=== PATIENT | female | born 1950 | race Caucasian/White ===

== ENCOUNTER 2018-12-20 14:28 | Observation (INO) | payer MEDICARE ==
[~2018-12-20] VITALS: Ht 167.6 cm; Wt 104.3 kg
--- NOTE | ~2018-12-20 | H ---
[address] [address] HISTORY AND PHYSICAL Name: ANKIT SOMERS Juanis Room: [address] Carmen#: [id number] Admission: 12/20/18 Attend Phys: Grzegorz Jimenez MD Discharge: Date of : 52 Report #: [id number] THIS REPORT FOR: //name// CC: [facility] physician/PCP Grzegorz Jimenez INTRODUCTION: This is a 67-year-old white female, who was seen in the ER for a right fifth digit necrotic toe with some progressing erythema to the fifth ray and possibly along to the fourth digit. HISTORY OF PRESENT ILLNESS: This is a 67-year-old healthy female, not diabetic, with a wound that started approximately 4 weeks ago on her fifth digit. Since then, it has become progressively darker, necrotic, and painful with erythema surrounding the fifth digit and more proximal. The patient decided to come to the ER, was admitted here on 12/20 at [place]. PAST MEDICAL HISTORY: Significant for hypertension, previous left ankle fracture noted as well. MEDICATIONS: Include lisinopril and Bystolic. ALLERGIES: TO MORPHINE. SOCIAL HISTORY: No history of tobacco use, recreational drugs but occasional alcohol use. Very pleasant, very bright woman. PAST SURGICAL HISTORY: Ankle fracture. FAMILY HISTORY: Noncontributory. REVIEW OF SYSTEMS: In the chart, noncontributory. PHYSICAL EXAMINATION: GENERAL: The patient is well-developed, well-nourished white female in no acute distress, morbidly obese. HEENT: PERRLA. NECK: Supple. HEART: Regular rhythm. No murmurs, rubs, or gallops. LUNGS: Clear to auscultation. No rales, rhonchi, or wheezing. EXTREMITIES: Lower extremity exam shows she has a fifth digit with the very distal aspect necrotic, well demarcated at this time with the more proximal aspect of the digit, kind of a purplish resolving hue color. There is no erythema when I see it around the fifth digit or fourth digit. LABORATORY DATA: Her white blood cell is 9.2 and [place] [address] HISTORY AND PHYSICAL Name: ANKIT SOMERS Room: [address] M.R.#: [id number] Admission: 12/20/18 Attend Phys: Grzegorz Jimenez MD Discharge: Date of : 52 Report #: [id number] any bony involvement. IMPRESSION: The patient appears to have an embolic shower according to the history and the presentation today to that right fifth digit. PLAN: To watch it and let it demarcate out. The patient and I had a long conversation about the potential process or progress that will occur. It could take at least 3-4 weeks for this to demarcate out completely, maybe even longer but it will take some time. I have discussed the wound care shoe to walk and I will see her in my office in the next week or so. The patient knows she can call me anytime with any concerns. By: [id number] [id number] Joseph DPM /titus
[2018-12-20 14:55] VITALS: BP 157/99
[2018-12-20] MEDS ORDERED: LISINOPRIL10 MG PO (14:59)
[2018-12-20] MEDS ORDERED: BYSTOLIC 5 MG5 MG PO (15:00)
[2018-12-20 17:38] LABS: ABSOLUTE EOSINOPHILS 0.1 thou/uL (0.0-0.7); ABSOLUTE LYMPHOCYTES 2.5 thou/uL (0.8-5.3); ABSOLUTE MONOCYTES 0.6 thou/uL (0.0-1.2); BASOPHILS 0.3 %; EOSINOPHILS 1.1 %; HEMATOCRIT 47.5 % (37.0-47.0); HEMOGLOBIN 16.3 gm/dL (12.0-15.0); LYMPHOCYTES 26.8 %; MCH 31.5 pg (26.0-34.0); MCHC 34.4 g/dL (28.0-37.0); MCV 91.4 fL (80.0-100.0); MONOCYTES 6.6 %; NUCLEATED RBCS 0 /100WBC; PLATELET COUNT* 196 thou/uL (150-400); POLYS 65.2 %; RBC 5.19 mil/uL (4.20-5.00); RDW-CV 14.2 % (10.5-14.5); WBC 9.2 thou/uL (4.0-11.0)
[2018-12-20 17:46] LABS: CALCIUM 11.9 mg/dL (8.5-10.1); POTASSIUM 3.3 mmol/L (3.5-5.1)
[2018-12-20 17:47] LABS: APTT 28.8 Seconds (25.0-31.3); PROTIME 10.7 Seconds (9.20-11.50)
[2018-12-20 17:51] LABS: ALBUMIN 4.2 g/dL (3.4-5.0); TOTAL BILIRUBIN 0.9 mg/dL (<0.1-1.0); TOTAL PROTEIN 7.4 g/dL (6.4-8.2)
--- NOTE | 2018-12-20 19:29 | NUR ---
BACK FROM MRI
[2018-12-20 20:01] VITALS: BP 110/74
[2018-12-20 20:36] VITALS: BP 149/72
[2018-12-21 01:50] VITALS: BP 97/41
[2018-12-21 02:10] LABS: GLYCOHEMOGLOBIN (HGB A1C) 5.4 % (4.8-5.6)
[2018-12-21 04:26] LABS: HEMATOCRIT 43.1 % (37.0-47.0); HEMOGLOBIN 14.5 gm/dL (12.0-15.0); MCHC 33.5 g/dL (28.0-37.0); MCV 92.4 fL (80.0-100.0); MPV 8.5 fl. (7.2-11.1); RBC 4.67 mil/uL (4.20-5.00); RDW-CV 14.5 % (10.5-14.5); WBC 7.6 thou/uL (4.0-11.0)
[2018-12-21 04:36] LABS: ANION GAP 10 mmol/L (7-16); BUN 20 mg/dL (7-18); CALCIUM 10.2 mg/dL (8.5-10.1); CHLORIDE 102 mmol/L (98-107); CO2 27 mmol/L (21-32); CREATININE 1.1 mg/dL (0.6-1.3); GLUCOSE 93 mg/dL (70-99); POTASSIUM 3.2 mmol/L (3.5-5.1); SODIUM 139 mmol/L (136-145)
[2018-12-21 04:40] LABS: CHOLESTEROL 197 mg/dL (<200); HDL CHOLESTEROL 48 mg/dL (>40); LDL CHOLESTEROL 85 mg/dL (<100); MAGNESIUM 1.6 mg/dL (1.8-2.4); TC:HDL 4.1 Ratio (Not establshd); TRIGLYCERIDE 322 mg/dL (<150); VLDL 64 mg/dL (<40)
[2018-12-21 04:56] LABS: SERUM ASSESSMENT CLEAR
--- NOTE | 2018-12-21 05:02 | NUR ---
PATIENT SLEPT WELL AFTER ADMISSION COMPLETED. PT WITH NECROTIC RT 5TH TOE; NO DRAINAGE NOTED. PT WRAPPED IN GAUZE 4X4 FOLDED WITH TAPE TO KEEP TOES . PT REQUESTED TYLENOL ONE TIME AT HS FOR PAIN/SLEEP. PT DENIES NEEDS THIS AM. PT WITH FLUIDS/ANTIBIOTICS INFUSING PER DR ORDER. PT UP AD CORTEZ WITH STEADY GAIT TO BATHROOM. FREQUENTLY USED ITEMS AND CALL LIGHT WITHIN REACH. SIDERAILS UPX2. WILL CONTINUE TO MONITOR.
[2018-12-21 07:35] VITALS: BP 135/54
[2018-12-21] MEDS ORDERED: ASA5UEC PO (08:01)
[2018-12-21] MEDS ORDERED: NORCO 5-325 TA1 EAC1 PO (08:01)
[2018-12-21] MEDS ORDERED: LIPITOR 20 MG T20 M1 PO (08:02)
[2018-12-21] MEDS ORDERED: KEFLEX250 MG PO (08:04)
[2018-12-21 09:40] VITALS: BP 135/54
--- NOTE | 2018-12-21 11:47 | NUR ---
PT.IN BED. VISITED WITH HER. SHE SAID SHE LIVES WITH A ROOMATE-A GOOD FRIEND FROM HIGH SCHOOL. SHE CAN HELP HER IF NEEDED. PT.DOES NOT FEEL SHE WILL NEED ASSIST EXCEPT FOR MAYBE GROCERY SHOPPING. SHE SAID HER ROOMATE CAN DO THAT,THOUGH. PT.STILL WORKS SENIOR SOFTWARE DEVELOPMENT MANAGER. NO DME OR HX OF OR SNF. PT.DID NOT FEEL SHE HAD INSURANCE BUT ADMITTING RAN HER SS# AND SHE HAS MEDICARE. PT.SAID SHE NEVER GO A CARD. GAVE HER PHONE NUMBER TO CALL TO REQUEST A CARD.
[2018-12-21 14:28] LABS: CALCIUM 10.5 mg/dL (8.5-10.1); CREATININE 0.9 mg/dL (0.6-1.3); PHOSPHORUS* 2.1 mg/dL (2.5-4.9)
[2018-12-21 15:29] VITALS: BP 135/54
--- NOTE | 2018-12-21 15:45 | NUR ---
WOUND NURSE: PATIENT SEEN BY SHIRIN OLIVER FROM [facility] AND SHE PROVIDED WOUND POT. PATIENT NOT SEEN BY ME A RESULT.
[2018-12-21 15:59] VITALS: BP 135/54
--- NOTE | 2018-12-21 16:11 | NUR ---
PT GIVEN DISCHARGE INFORMATION, CARE NOTES, AND PRESCRIPTIONS. IV REMOVED. PT DENIED ANY FURTHER QUESTIONS OR CONCERNS. PT LEFT AMBULATORY WITH NURSING STAFF TO HOME. FALL RISK PRECAUTIONS IN PLACE. HOURLY ROUNDING COMPLETED.
[2018-12-21 16:12] VITALS: BP 135/54
== END 2018-12-21 16:13 | disposition home or self-care (01) ==
LOC: M.ERS 14:28 → M.ORTHSURG 18:07 → M.TBA-ER 18:07 → M.ORTHSURG 18:07
PROVIDERS: Nurse Practitioner Family; ADMIT Internal Medicine
DX: I70.261 Atherosclerosis of native arteries of extremities with gangrene, right leg (principal); I73.9 Peripheral vascular disease, unspecified; I10 Essential (primary) hypertension; E87.6 Hypokalemia; E83.52 Hypercalcemia; E66.9 Obesity, unspecified; Z79.82 Long term (current) use of aspirin; Z79.899 Other long term (current) drug therapy

== ENCOUNTER 2018-12-31 15:56 | Inpatient (IN) | payer MEDICARE ==
[~2018-12-31] VITALS: Ht 167.6 cm; Wt 108.4 kg
--- NOTE | ~2018-12-31 | CON ---
[address] [address] CONSULTATION Name: ANKIT SOMERS Room: [address] ADM IN M.R.#: [id number] Admission: 12/31/18 Attend Phys: Cesilia Gonzalez MD Discharge: Date of : 52 Report #: [id number] THIS REPORT FOR: //name// CC: [facility] physician/PCP Cesilia Gonzalez HISTORY OF PRESENT ILLNESS: The patient is a 68-year-old white female, who has been admitted again for a right foot distal dry gangrene. The patient was seen last on 12/20. She was told to follow up in my office but never made it to my office. She was seen by a nurse practitioner, who was worried about some redness in the area and increased pain, and sent her to [facility]. She since has been admitted and put on intravenous antibiotics. When I talked to her, she was doing quite well with less pain in the area, almost no pain. She was given strict instructions to call me with any concerns, but apparently she did not quite believe that was something that she could actually do. Her past medical history is in the chart already, especially from 12/20 and also from this newest visit. CTA runoff was actually obtained. This demonstrates right SFA occlusion with reconstitution of Krishna canal and 2-vessel runoff in the foot via the PT and AT. The upper extremity exam has been done in full. PAST MEDICAL HISTORY: Consisting of hypertension and vascular disease. PAST SURGICAL HISTORY: Left ankle fracture repair. FAMILY HISTORY: Remarkable for ovarian. MEDICATION LIST: Listed. PHYSICAL EXAMINATION: Lower extremity exam shows she has a right distal fifth digit, approximately the third of the distal aspect is necrotic and in the more proximal aspect has slight purplish hue, but does not look too red today and is not as painful, I am able to palpate today. IMAGING: X-rays were unremarkable from previous exam. ASSESSMENT AND PLAN: The patient appears to have embolic shower because of right fifth toe necrosis. The patient and I have discussed several times. [place] [address] CONSULTATION Name: ANKIT SOMERS Room: [address] IN [facility].#: [id number] Admission: 12/31/18 Attend Phys: Cesilia Gonzalez MD Discharge: Date of : 51 Report #: [id number] though I gave her option for a partial fifth digit or a partial fifth ray resection. She is afraid of having surgery because of the wound that will be created because of the surgery. So she wants to hold off and let it demarcate itself. I am preferably willing to do this. At this point, we need to make sure that we fix the communication process, so she can talk to me before going to the emergency room and give her better control by watching her weekly. I suggested both the operation and conservative care. I thought if she is having pain that definitely the fifth digit amputation would be the best route for her, but she wants to avoid at this point. By: 1323 [id number] Joseph DPM /nt
[~2018-12-31 15:56] MED LIST: ASA5UEC PO; BYSTOLIC 5 MG5 MG PO; KEFLEX250 MG PO; LIPITOR 20 MG T20 M1 PO; LISINOPRIL10 MG PO; NORCO 5-325 TA1 EAC1 PO
[2018-12-31 16:07] VITALS: BP 149/83
[2018-12-31 17:34] LABS: CALCIUM 10.9 mg/dL (8.5-10.1); CREATININE 1.1 mg/dL (0.6-1.3); POTASSIUM 4.3 mmol/L (3.5-5.1)
[2018-12-31 17:46] LABS: APTT 20.8 Seconds (25.0-31.3); INR 1.1; PROTIME 11.6 Seconds (9.20-11.50)
[2018-12-31 17:48] LABS: ALBUMIN 4.1 g/dL (3.4-5.0); TOTAL BILIRUBIN 0.8 mg/dL (<0.1-1.0); TOTAL PROTEIN 7.5 g/dL (6.4-8.2)
[2018-12-31 18:13] LABS: ABSOLUTE BASOPHILS 0.1 thou/uL (0.0-0.2); ABSOLUTE EOSINOPHILS 0.1 thou/uL (0.0-0.7); ABSOLUTE LYMPHOCYTES 1.9 thou/uL (0.8-5.3); ABSOLUTE MONOCYTES 0.7 thou/uL (0.0-1.2); ABSOLUTE NEUTROPHILS 5.6 thou/uL (1.6-8.1); BASOPHILS 1.3 %; EOSINOPHILS 1.6 %; HEMATOCRIT 42.4 % (37.0-47.0); HEMOGLOBIN 14.3 gm/dL (12.0-15.0); MCH 31.9 pg (26.0-34.0); MCHC 33.8 g/dL (28.0-37.0); MCV 94.3 fL (80.0-100.0); MONOCYTES 8.8 %; MPV 7.7 fl. (7.2-11.1); NUCLEATED RBCS 0 /100WBC; PLATELET COUNT* 169 thou/uL (150-400); POLYS 66.3 %; RBC 4.49 mil/uL (4.20-5.00); RDW-CV 14.7 % (10.5-14.5); WBC 8.5 thou/uL (4.0-11.0)
[2018-12-31 19:47] VITALS: BP 115/58
--- NOTE | 2018-12-31 20:30 | NUR ---
RECEIVED REPORT FROM ER AND PT ADMITTED TO ROOM AT 195. RT 5TH TOE BLACK, PHOTO TAKEN. PT STATES CONSTANT PAIN 6/10 SCALE. TELEMETRY APPLIED SHOWING SR. SEE ADMISSION ASSESSMENT AND HX. WILL CONT TO FOLLOW AND ASSIST NEEDED.
[2019-01-01 00:21] VITALS: BP 98/46
[2019-01-01 04:00] VITALS: BP 89/37
[2019-01-01 05:24] LABS: ABSOLUTE BASOPHILS 0.1 thou/uL (0.0-0.2); ABSOLUTE EOSINOPHILS 0.2 thou/uL (0.0-0.7); ABSOLUTE LYMPHOCYTES 2.4 thou/uL (0.8-5.3); ABSOLUTE MONOCYTES 0.6 thou/uL (0.0-1.2); ABSOLUTE NEUTROPHILS 2.9 thou/uL (1.6-8.1); BASOPHILS 0.9 %; EOSINOPHILS 3.2 %; HEMATOCRIT 38.7 % (37.0-47.0); HEMOGLOBIN 13.2 gm/dL (12.0-15.0); LYMPHOCYTES 38.6 %; MCH 32.3 pg (26.0-34.0); MCHC 34.1 g/dL (28.0-37.0); MCV 94.5 fL (80.0-100.0); MONOCYTES 9.3 %; MPV 7.9 fl. (7.2-11.1); NUCLEATED RBCS 0 /100WBC; PLATELET COUNT* 157 thou/uL (150-400); RBC 4.09 mil/uL (4.20-5.00); RDW-CV 14.3 % (10.5-14.5); WBC 6.1 thou/uL (4.0-11.0)
[2019-01-01 05:43] LABS: CALCIUM 9.7 mg/dL (8.5-10.1); CREATININE 1.1 mg/dL (0.6-1.3); MAGNESIUM 1.6 mg/dL (1.8-2.4); POTASSIUM 3.5 mmol/L (3.5-5.1)
--- NOTE | 2019-01-01 07:02 | NUR ---
SLEPT SOUNDLY, EASILY AWAKEN BUT BACK TO SLEEP. AT 04 BP LOW 89/37, PT HAS HX OF HTN, IV FLUIDS INCREASED TO 250 CC/2HR. BP THIS AM 72/22 WITH MANUAL BP OF 80/40. ASYMPTOMATIC, DENIES DIZZINESS OR SYNCOPAL FEELING. SITTING UPON SIDE OF BED LOOKING AT COMPUTER, BP NOW 111/56. PT DID RECEIVED METROPROLOL AT HS ORDERED WHICH IS NOT A HOME MED. INSTRUCTED NOT TO GET UP BY HERSELF. TELEMETRY SHOWING SB WITH BBB. HOURLY ROUNDING OBSERVED DURING THE NIGHT.
[2019-01-01 08:19] VITALS: BP 104/62
[2019-01-01 12:10] VITALS: BP 112/60
--- NOTE | 2019-01-01 12:40 | NUR ---
VSS, ASSUMED CARE IN THE AM, ASSESSMENT PERFORMED AND CHARTED FALL PRECAUTIONS IN PLACE AND CALL LIGHT IN REACH, PT IS A&O4 AND UP AD CORTEZ ON RA ANS IS TRACING SB ON THE MONITOR, PT GOAL IS TO COMPLETE CT OF ABD AND MEET WITH ORTHO DOCTOR ABOUT FOOT, PT STATES PAIN 6 OUT OF 10 AND I PROVITED PAIN MEDS,
--- NOTE | 2019-01-01 16:01 | NUR ---
SW met with pt to complete initial assessment, introduce self, and SW role. Pt was in the hospital just a couple weeks ago. Pt said she thinks that if she would have gone home on iv abx, then she thinks she wouldn't have had more trouble with her toes. SW provided AD/DPOA information. Pt does not have any DME or hx of HH or SNF. Pt continues to live at home with roommate. Pt did not express any dc needs at this time.
[2019-01-01 16:50] VITALS: BP 132/70
[2019-01-02] VITALS (7 sets, daily range): BP systolic 100–151; BP diastolic 35–76
--- NOTE | 2019-01-02 00:49 | NUR ---
ASSUMED CARE OF PT AT 1900. PT IS ALERT AND ORIENTED. VSS. PERRHANH. PT IS IN SINUS RYTHM ON THE TELEMETRY. PT IS RESTING COMFORTABLY IN BED. RESPIRATIONS ARE EVEN AND NONLABORED. WILL CONTINUE TO MONITOR PT.
[2019-01-02 05:25] LABS: ABSOLUTE BASOPHILS 0.1 thou/uL (0.0-0.2); ABSOLUTE EOSINOPHILS 0.2 thou/uL (0.0-0.7); ABSOLUTE MONOCYTES 0.5 thou/uL (0.0-1.2); ABSOLUTE NEUTROPHILS 3.1 thou/uL (1.6-8.1); BASOPHILS 1.2 %; EOSINOPHILS 3.9 %; HEMATOCRIT 38.3 % (37.0-47.0); HEMOGLOBIN 12.9 gm/dL (12.0-15.0); LYMPHOCYTES 34.4 %; MCHC 33.8 g/dL (28.0-37.0); MCV 94.7 fL (80.0-100.0); NUCLEATED RBCS 0 /100WBC; PLATELET COUNT* 157 thou/uL (150-400); POLYS 52.5 %; RBC 4.04 mil/uL (4.20-5.00); RDW-CV 14.5 % (10.5-14.5); WBC 5.8 thou/uL (4.0-11.0)
[2019-01-02 05:32] LABS: CALCIUM 9.5 mg/dL (8.5-10.1); CREATININE 0.9 mg/dL (0.6-1.3); POTASSIUM 4.7 mmol/L (3.5-5.1)
--- NOTE | 2019-01-02 12:19 | CON ---
[address] [address] CONSULTATION Name: ANKIT SOMERS Room: [address] IN .R.#: [id number] Admission: 12/31/18 Attend Phys: Cesilia Gonzalez MD Discharge: Date of : 52 Report #: [id number] THIS REPORT FOR: //name// CC: [facility] physician/PCP Cesilia Gonzalez DATE OF SERVICE: 01/01/2019 INFECTIOUS DISEASE CONSULTATION ATTENDING PHYSICIAN: Cesilia Gonzalez MD REASON FOR EVALUATION: Right fifth toe gangrene. HISTORY OF PRESENT ILLNESS: Chart reviewed and the patient examined. A 68-year-old woman with known history of vasculopathy, known hypertension, history of smoking, who presented to the Emergency Room with complaints of increasing pain, progressive gangrenous changes of her right fifth toe, noted that had been seen previously, in fact hospitalized within the last couple of weeks, was felt to have embolic etiology. This was treated with systemic antibiotics, initially parenteral and oral. She noted initial course subsequent to her discharge on 12/21, toe had looked better; however, this was not to be the case, they are leading up to her now second admission. It is not clear that she has had systemic illness. Denies any fevers, chills. Appetite has been somewhat diminished, in part attributes that to the antibiotics. She was discharged on cephalexin. Denies any pulmonary or gastrointestinal related complaints. ALLERGIES: LISTED TO MORPHINE. CURRENT MEDICATIONS: Include lisinopril, aspirin, cholecalciferol, pantoprazole, vancomycin, Tylenol, metoprolol, atorvastatin, enoxaparin, p.r.n. analgesics, antiemetics, and ceftriaxone. PAST MEDICAL HISTORY: Hypertension, has known vasculopathy. SOCIAL HISTORY: Former smoker. No ethanol, no illicit drug use. FAMILY HISTORY: Noncontributory. REVIEW OF SYSTEMS: Otherwise unremarkable, unless noted in the above history of present illness. PHYSICAL EXAMINATION: GENERAL: She is alert, cooperative, mild to moderate distress secondary to the toe pain. She [place] [address] CONSULTATION Name: ANKIT SOMERS Room: [address]#: [id number] Admission: 12/31/18 Attend Phys: Cesilia Gonzalez MD Discharge: Date of : 51 Report #: [id number] VITAL SIGNS: Temperature 98.2, pulse 63, respirations 16, blood pressure 104/62. SKIN: Warm, dry. No rashes. HEENT: Normocephalic. Extraocular muscles intact. NECK: Supple. LUNGS: Slightly diminished breath sounds, otherwise clear. HEART: Regular. I do not appreciate a murmur. ABDOMEN: Soft, nontender, and nondistended. EXTREMITIES: Distal right lower extremity was evaluated. Fifth toe has gangrenous changes at the distal one-third to one-half. There is tenderness at the base. There is some moderate degree of inflammation, suggests perhaps a component of cellulitis in addition to the ischemic component. GENITOURINARY: Deferred. RECTAL: Deferred. LABORATORY DATA: Blood cultures sterile thus far. Electrolytes: Sodium 139, potassium 3.5, chloride 105, bicarbonate is 30, anion gap of 4, BUN and creatinine 18 and 1.1, glucose of 95, estimated GFR of 50. CBC: White count of 6.1, H and H 13.2 and 38.7, platelets of 157. Differential unremarkable. Lactic acid initially 2.9, repeat was 1.3. ASSESSMENT: Right fifth toe gangrene as result of embolic effect. There may well be a component of infection given the recent increase in redness, seems well on its way to demarcating at this point and the plan is to allow autoamputation, control the symptoms at this point. We will monitor expectantly. In the event of deterioration in her clinical course, may need to consider more aggressive surgical measures. <ELECTRONICALLY SIGNED> By: Juan Miguel Vasquez MD 01/02/19 1219 0910 [id number] Vasquez MD /nt
--- NOTE | 2019-01-03 01:41 | NUR ---
ASSUMED CARE OF PT AT 1900. PT IS ALERT AND ORIENTED. VSS. PERRLA. NO COMPLAINTS OF PAIN. PT IS IN SINUS RYTHM ON THE TELEMETRY. PT IS RESTING COMFORTABLY IN BED. RESPIRATIONS ARE EVEN AND NONLABORED. WILL CONTINUE TO MONITOR PT.
[2019-01-03 04:00] VITALS: BP 100/42
[2019-01-03 04:23] LABS: HEMATOCRIT 39.4 % (37.0-47.0); HEMOGLOBIN 13.3 gm/dL (12.0-15.0); MCHC 33.8 g/dL (28.0-37.0); MCV 94.5 fL (80.0-100.0); RBC 4.17 mil/uL (4.20-5.00); RDW-CV 14.2 % (10.5-14.5); WBC 6.5 thou/uL (4.0-11.0)
[2019-01-03 04:42] LABS: CALCIUM 9.3 mg/dL (8.5-10.1); CREATININE 0.8 mg/dL (0.6-1.3); MAGNESIUM 1.8 mg/dL (1.8-2.4); POTASSIUM 4.2 mmol/L (3.5-5.1)
[2019-01-03 06:57] VITALS: BP 100/42
[2019-01-03 09:49] VITALS: BP 130/67
[2019-01-03] MEDS ORDERED: ASA5UEC PO (10:35)
[2019-01-03 11:30] VITALS: BP 148/73
[2019-01-03] MEDS ORDERED: MINOCIN50 MG PO (15:11)
[2019-01-03 15:15] VITALS: BP 148/73
--- NOTE | 2019-01-03 16:38 | NUR ---
PATIENT DISCHARGED TO HOME ALL DISCHARGE INFORMATION GIVEN, ACKNOWLEDGED, SIGNED COPIES GIVEN IV AND HEART MONITOR REMOVED PERSONAL BELONGINGS RETURNED ASSISTED OUT VIA GOOD CONDITION TO WAITING CAR
--- NOTE | 2019-01-06 11:29 | OP ---
[address] [address] OPERATIVE REPORT Name: LIZBETANKIT Juanis Room: [address] IN .R.#: [id number] Admission: 12/31/18 Attend Phys: Cesilia Gonzalez MD Discharge: 01/03/19 Date of : 51 Report #: [id number] THIS REPORT FOR: //name// CC: [facility] physician/PCP Cesilia Gonzalez DATE OF SERVICE: 01/03/2019 PREOPERATIVE DIAGNOSIS: Right superficial femoral artery occlusion. POSTOPERATIVE DIAGNOSIS: Right superficial femoral artery occlusion. PROCEDURE: 1. Right leg angiogram. 2. Atherectomy right superficial femoral artery. 3. Thrombectomy, right popliteal and anterior tibial arteries. 4. Angioplasty and stenting of right superficial femoral artery. 5. Angioplasty right anterior tibial artery. 6. Angioplasty right popliteal artery. 7. Ultrasound guidance for arterial access of the left common femoral artery with image saved. SURGEON: Rachid Day MD ASSISTANTS: 1. Dr. Rivas, resident year 2. 2. Ramone Scanlon, surgical assistant certified. COMPLICATIONS: None. ESTIMATED BLOOD LOSS: 10 mL. SPECIMEN: None. ANESTHESIA: Local sedation. INDICATIONS FOR PROCEDURE: The patient is a very pleasant 68-year-old white female who has ischemic right fifth toe. She has evidence for right SFA occlusion. We recommend a revascularization. Informed consent was obtained from the patient with the risks including but not limited to bleeding, infection, need for further surgery, pain, , heart attack, stroke, amputation. The patient understood these risks and was agreeable to proceed. DESCRIPTION OF PROCEDURE: The patient was taken to the angio suite, placed in supine position. Sedation was initiated. Left groin was prepped and draped. Timeout was performed. The patient received appropriate preoperative [address] [address] OPERATIVE REPORT Name: ANKIT SOMERS Room: [address]#: [id number] Admission: 12/31/18 Attend Phys: Cesilia Gonzalez MD Discharge: 01/03/19 Date of : 51 Report #: [id number] antibiotics. The patient was heparinized throughout the procedure. I infused 10 mL of 1% lidocaine in the left groin. Under ultrasound guidance with an image saved, I cannulated the left common femoral artery without difficulty. I used Seldinger technique to exchange out for a 6-English sheath. I passed the Omniflush catheter into the abdominal aorta. I selectively cannulated the right iliac system. I performed selective angiogram of the right leg. FINDINGS: On angiogram: 1. Bilateral iliac arteries are widely patent bilaterally. 2. Right common femoral artery is widely patent into the profunda femoris. The SFA is occluded just distal to its origin, reconstitutes at the level of the adductor canal. 3. Right popliteal artery is widely patent with 3-vessel runoff into the foot. 4. After intervention on the SFA, there is evidence for thromboembolism to the trifurcation of the popliteal artery below the knee. 5. After intervention on the thromboembolism, there is evidence for embolization down the anterior tibial with a widely patent flow in the peroneal and posterior tibial. 6. After intervention on the anterior tibial, there is widely patent flow through this vessel as well with resolution of the thromboembolism. I selectively cannulated the origin of the right SFA. I performed Crosser atherectomy of the right SFA. Crosser was able to successfully cross the occlusion and reenter in the true lumen distally. I performed distal angiogram, which showed 3-vessel runoff to the right foot. I angioplastied the entire right SFA. After angioplasty, the patient complained of more pain in her foot. Distal angiogram showed a thromboembolism to the distal popliteal artery at the trifurcation. I stented the entire right SFA using a 6 x 200 and then 6 x 120 LifeStents. I post-dilated these stents with a 5 mm balloon. Completion imaging showed excellent result with resolution of the occlusion. I then turned my attention to the thromboembolism. I selectively cannulated the anterior tibial through the thromboembolism. I initially angioplastied the distal popliteal, proximal anterior tibial. Completion imaging showed clearance of the clot from the posterior tibial and peroneal, but it appeared that the clot had been pushed down into the anterior tibial. I was able to cross the clot with the wire and then angioplastied it with a 3 mm balloon. There was still residual thrombus. I opened a thrombectomy catheter, Pronto catheter. I passed the Pronto catheter down to the thrombus. I placed the Pronto catheter on suction and then withdrew it. I removed a small amount of thromboembolism. I repeated my imaging. There was improved flow, but still some thromboembolism. I reangioplastied the distal anterior tibial with a 3 mm balloon. Now on completion imaging, there was widely patent flow through the vessel. The patient now had 3-vessel runoff. Her foot was pink and warm with palpable dorsalis pedis and posterior tibial signals. I removed my sheath and wire. I placed a 6-English Angio-Seal without complication. There was no bleeding or hematoma. The patient tolerated the procedure well and was taken alert and [facility] [address] [place] [address] OPERATIVE REPORT Name: ANKIT SOMERS Room: [facility] IN [facility].#: [id number] Admission: 12/31/18 Attend Phys: Cesilia Gonzalez MD Discharge: 01/03/19 Date of : 52 Report #: [id number] awake to recovery room in good condition. All needle and instrument counts were correct. <ELECTRONICALLY SIGNED> By: Maik Luevano DO 01/06/19 1129 1057 [id number] Day MD /nt
== END 2019-01-03 16:40 | disposition home or self-care (01) | DRG 854 ==
LOC: M.ERS 15:56 → M.2W 17:51 → M.TBA-ER 17:51 → M.ERS 17:51 → M.2W 20:14
PROVIDERS: Internal Medicine; Nurse Practitioner Family; ADMIT Family Medicine
PROC: 04CM3ZZ Extirpation of Matter from Right Popliteal Artery, Percutaneous Approach (ICD-10-PCS; principal; 2019-01-03)
PROC: 047K3DZ Dilation of Right Femoral Artery with Intraluminal Device, Percutaneous Approach (ICD-10-PCS; principal; 2019-01-03)
PROC: 047M3ZZ Dilation of Right Popliteal Artery, Percutaneous Approach (ICD-10-PCS; principal; 2019-01-03)
PROC: 04CK3ZZ Extirpation of Matter from Right Femoral Artery, Percutaneous Approach (ICD-10-PCS; principal; 2019-01-03)
PROC: 047P3ZZ Dilation of Right Anterior Tibial Artery, Percutaneous Approach (ICD-10-PCS; principal; 2019-01-03)
PROC: 04CP3ZZ Extirpation of Matter from Right Anterior Tibial Artery, Percutaneous Approach (ICD-10-PCS; principal; 2019-01-03)
DX: A41.9 Sepsis, unspecified organism (principal); L03.115 Cellulitis of right lower limb; I77.1 Stricture of artery; I73.9 Peripheral vascular disease, unspecified; L08.89 Other specified local infections of the skin and subcutaneous tissue; I12.9 Hypertensive chronic kidney disease with stage 1 through stage 4 chronic kidney disease, or unspecified chronic kidney disease; N18.3 Chronic kidney disease, stage 3 (moderate); I95.2 Hypotension due to drugs; R65.20 Severe sepsis without septic shock; Z88.6 Allergy status to analgesic agent; Z87.891 Personal history of nicotine dependence; Z80.41 Family history of malignant neoplasm of ovary; Z79.82 Long term (current) use of aspirin; Z79.899 Other long term (current) drug therapy